=== PATIENT | female | born 1960 ===

== ENCOUNTER 2019-02-05 09:34 | Outpatient (CLI) | payer BC ==
--- NOTE | 2019-02-05 10:42 | CT ---
EXAM: CT brain without contrast HISTORY: Loss of vision in the left eye; TIA COMPARISON: None TECHNIQUE: Multiple contiguous axial images were obtained and a CT of the brain without contrast. FINDINGS: The brain is normal in morphology and attenuation without focal lesions or confluent areas of infarction. There is no evidence of hydrocephalus, intracranial hemorrhage, or extra-axial fluid collection. The calvarium and overlying soft tissues are unremarkable. The visualized paranasal sinuses and masto id air cells are well aerated. IMPRESSION: No evidence of acute intracranial abnormality
--- NOTE | 2019-02-05 10:47 | CT ---
CT of the orbits: 02/05/2019 HISTORY: Left-sided vision loss TECHNIQUE: Axial CT imaging at 2 mm intervals through the orbits obtained without contrast. Coronal a nd sagittal reformatted imaging obtained. FINDINGS: Imaged paranasal sinuses and mastoid air cells unremarkable. The visualized brain parenchym a is unremarkable. The globes are symmetric in size, contour, and density. No intraconal or extraconal mass is evident o n either side. Extraocular muscles appear symmetric and normal bilaterally. IMPRESSION: Unremarkable CT of the orbits. MRI may be beneficial.
== END 2019-02-05 09:35 | disposition home or self-care (01) ==
LOC: BICCT 09:34
PROVIDERS: ATTEND Family Medicine
DX: G45.9 Transient cerebral ischemic attack, unspecified (principal); H54.3 Unqualified visual loss, both eyes
CPT/HCPCS: 70450; 70480